=== PATIENT | female | born 1990 | race Two or more races ===

== ENCOUNTER 2025-02-27 14:28 | Emergency (ER) | payer MEDICAID, SELFPAY ==
[2025-02-27 14:29] VITALS: BMI 26.4
[2025-02-27 15:00] VITALS: BP 134/84; PULSE 84; RESP 16; TEMP 37.1; O2SAT 99
--- NOTE | 2025-02-27 15:21 | EDNOTE_ITS ---
<Statement entered by Guerline Sanchez MD - 02/27/25 17:06> As co-signing physician, I was present and available for consult prn. I concur with the plan and care as documented by the midlevel provider. ED Abdominal Pain RME/HPI General Chief Complaint: Abdominal Pain Stated complaint: pain in LUQ Time seen by provider: 02/27/25 14:40 Arrival date/time: 02/27/25 14:28 34-year-old female with no known medical history presents to the emergency room with a chief complaint of left upper quadrant abdominal pain x 1 week Source: patient Mode of arrival: ambulatory Limitations: no limitations Related Data Previous Rx's ?Medication ?Instructions ?Recorded ibuprofen 400 mg tablet 400 mg PO Q6H PRN pain #30 t abs 05/24/23 methylprednisolone 4 mg tablets in 4 mg PO QAM #21 tab s 05/24/23 a dose pack (Medrol (Robert)) sulfamethoxazole 800 1 tab PO BID #14 tabs mg-trimethoprim 160 mg tablet (Bactrim DS) Allergies Allergy/AdvReac Type Severity Reaction Status Date / Time No Known Allergies Allergy Verified 02/27/25 14:31 Review of Systems Review of Systems Systems Reviewed: All systems reviewed, normal except as documented Constitutional Constitutional: Reports system reviewed and no additional complaints, except as documented, Denies fatigue, Denies fever(s), Denies headache(s) and Denies weakness Eyes Eyes: Reports system reviewed and no additional complaints, except as documented, Denies blurry vision and Denies change in vision ENT Ears, Nose, Mouth, and Throat: Reports system reviewed and no additional complaints, except as documented, Denies otalgia, Denies headache(s), Denies nasal congestion, Denies throat swelling and Denies vertigo Cardiovascular Cardiovascular: Reports system reviewed and no additional complaints, except as documented, Denies chest pain, Denies dyspnea and Denies dyspnea on exertion Respiratory Respiratory: Reports system reviewed and no additional complaints, except as documented, Denies chest congestion, Denies cough, Denies dyspnea, Denies dyspnea on exertion and Denies wheezing Gastrointestinal Gastrointestinal: Reports system reviewed and no additional complaints, except as documented, Reports abdominal pain, Reports cramping, Reports nausea and Denies vomiting Genitourinary Genitourinary: Reports system reviewed and no additional complaints, except as documented Musculoskeletal Musculoskeletal: Reports system reviewed and no additional complaints, except as documented and Denies back pain Integumentary/Breasts Skin/Breast: Reports system reviewed and no additional complaints, except as documented and Denies wounds Neurologic Neurologic: Reports system reviewed and no additional complaints, except as documented, Denies confusion, Denies headache(s), Denies lack of coordination, Denies vertigo and Denies weakness Psychiatric Psychiatric: Reports system reviewed and no additional complaints, except as documented, Denies anxiety, Denies confusion, Denies depression, Denies paranoia, Denies suicidal ideation and Denies tactile hallucinations Endocrine Endocrine: Reports system reviewed and no additional complaints, except as documented and Denies fatigue Hematologic/Lymphatic Hematologic/Lymphatic: Reports system reviewed and no additional complaints, except as documented and Denies lymphadenopathy Allergic/Immunologic Allergic/Immunologic: Reports system reviewed and no additional complaints, except as documented, Denies throat swelling, Denies urticaria and Denies wheezing Past Medical History Social History SMOKING STATUS: Never smoker SUBSTANCE USE: does not use ED Exam General Limitations: Present no limitations General appearance: Present alert and in no apparent distress Head Head exam: Present atraumatic Eye Eye exam: Present normal appearance, PERRL and EOMI ENT ENT exam: Present normal exam, normal oropharynx and mucous membranes moist Neck Neck exam: Present normal inspection, full ROM and trachea midline Chest Chest inspection: Present normal inspection and symmetric chest wall rise Respiratory Respiratory exam: Present normal lung sounds bilaterally; Absent respiratory distress, wheezes, stridor, accessory muscle use or prolonged expiratory phase Cardiovascular Cardiovascular exam: Present regular rate, normal rhythm and normal heart sounds Abdominal Exam Abdominal exam: Present soft, tenderness and normal bowel sounds Abdominal tenderness: Present LUQ and mild Extremities Exam Extremities exam: Present normal inspection and full ROM Back Exam Back exam: Present normal inspection and full ROM Neurological Exam Neurological exam: Present alert, oriented X3 and CN II-XII intact Psychiatric Psychiatric exam: Present normal affect and normal mood Skin Skin exam: Present warm, dry, intact and normal color Course Quality Measures none Orders Category Date Time Status CBC Stat Lab 02/27/25 15:15 Completed CMP [Comprehensive Metabolic Panel] Stat Lab 02/27/25 15:15 Completed HCG Qualitative,Urine Stat Lab 02/27/25 15:38 Completed Lipase Stat Lab 02/27/25 15:15 Completed UA [Urinalysis] Stat Lab 02/27/25 15:38 Completed Urine Culture Stat Lab 02/27/25 15:12 Received Vital Signs Vital signs: Vital Signs Temperature 98.7 F 02/27/25 15:00 Pulse Rate 84 02/27/25 15:00 Respiratory Rate 16 02/27/25 15:00 Blood Pressure 134/84 H 02/27/25 15:00 Pulse Oximetry (%) 99 02/27/25 15:00 Oxygen Delivery Method Room Air 02/27/25 15:00 O2 saturation 99% within normal limits Abdominal Pain MDM MDM Narrative MDM Narrative:: 34-year-old female with no known medical history presents to the emergency room with a chief complaint of left upper quadrant abdominal pain x 1 week Patient is hemodynamically stable and in no apparent distress. Patient denies any vomiting any fevers any diarrhea Physical examination shows a soft nontender abdomen on the right side. The patient is complaining of some mild tenderness to the left upper quadrant and left lower quadrant of her abdomen CBC CMP negative for any acute findings Urinalysis showed a urinary tract infection Patient was discharged and educated to follow-up with primary care provider in the next 24 to 48 hours and return to the emergency room for any evidence of worsening signs or symptoms Patient data External records reviewed:: [facility] previous records Clinical information provided by:: patient Social determinants that could affect healthcare access:: none Patient has the following chronic illnesses:: No chronic illness How is presenting disease/condition affected by chronic disease/condition?: no chronic disease Evaluation data The following diagnostics were reviewed and interpreted by me:: lab results and radiology exam(s) Lab and/or radiology exams considered but not ordered:: Labs and radiology exams considered and ordered Interpretation Summary: N/A Medications / Prescriptions Medications or Prescriptions considered but not ordered:: Medication given Medication administrations:: Medication not given Consultations Consultation(s) initiated? (list below): No Diagnosis Differential diagnosis abdominal pain: abdominal pain, acute appendicitis, constipation, gastroenteritis and other (Urinary tract infection) Most likely diagnosis given after review of the tests above:: Urinary tract infection Admission Indicated Admission indicated?: not indicated Admission Request Was there a request for admission?: No Disposition Plan Disposition Plan: Discharge Discharge Attestation Discharge Attestation: The patient and all family members were given an opportunity to ask questions and understood the discharge instructions. Discharge instructions specifically effects, indications for sooner follow up or return to the emergency department, and the expected course of current diagnosis. Patient condition: Stable Discharge Plan Plan Patient Disposition: HOME (Self Care) Discharge Disposition comment: Stable Prescriptions/Referrals Prescriptions/Med Rec: New sulfamethoxazole-trimethoprim [Bactrim DS] 800-160 mg tablet 1 tab PO BID Qty: 14 0RF No Action methylprednisolone [Medrol (Robert)] 4 mg tablets,dose pack 4 mg PO QAM Qty: 21 0RF Rx Instructions: Use as directed ibuprofen 400 mg tablet 400 mg PO Q6H PRN (Reason: pain) Qty: 30 0RF Referrals: Juan Diego Canales MD [Primary Care Provider, Family Practice] - In 1 week Problem List Clinical Impression: Urinary tract infection Patient/Caregiver Discharge Instructions Education Materials: ED CYSTITIS Female Adult Additional Instructions: Please follow-up with your primary care provider in the next 24 to 48 hours Urinalysis showed a urinary tract infection. Antibiotics sent to your pharmacy please pick them up and take them as indicated for any evidence of worsening signs or symptoms return to the emergency room immediately Print Language: Upper Sorbian Stand Alone Forms: Tabitha Award Info., Work/School Release, Patient Portal Info Letter PA/HORTENCIA Supervising Physician PA/HORTENCIA Supervising Physician: Dr. SANCHEZ
[2025-02-27 15:29] LABS: Basophils # (Auto) 0.0 Thou/mm3 (0.0-0.2); Basophils % (Auto) 0 % (0-2.5); Eosinophils # (Auto) 0.1 Thou/mm3 (0.0-0.5); Eosinophils % (Auto) 1 % (0-10); Hematocrit 38.2 % (36.0-46.0); Hemoglobin 13.2 g/dL (12.0-16.0); Immature Granulocytes Auto 0.04 Thou/mm3 (0.00-0.00); Lymphocytes # (Auto) 2.3 Thou/mm3 (1.0-4.8); Lymphocytes % (Auto) 26 % (10-50); Mean Corpuscular HGB Conc 34.6 g/dl (31.0-37.0); Mean Corpuscular Hemoglobin 30.6 pg (25.0-35.0); Mean Corpuscular Volume 89 fL (80-100); Monocytes # (Auto) 0.4 Thou/mm3 (0.0-0.8); Monocytes % (Auto) 4 % (0-12); Neutrophils # (Auto) 6.2 Thou/mm3 (1.8-7.7); Neutrophils % (Auto) 69 % (37-80); Nucleated Red Blood Cell # 0.00 Thou/mm3 (0.00-0.00); Nucleated Red Blood Cell % 0 /100 WBC (0); Platelet Count 189 Thou/mm3 (140-440); RDW Standard Deviation 41.3 fL (36.4-46.3); Red Blood Count 4.31 Miln/mm3 (4.00-5.20); White Blood Count 9.0 Thou/mm3 (3.6-11.0)
[2025-02-27 15:48] LABS: Collection Type, Urine Clean Catch
[2025-02-27 15:50] LABS: Alanine Aminotransferase 34 U/L (10-49); Albumin, Serum 4.7 gm/dL (3.5-5.0); Albumin/Globulin Ratio 1.5 (1.2-2.2); Alkaline Phosphatase 102 U/L (46-116); Anion Gap 9 (7-16); Aspartate Amino Transferase 21 U/L (0-34); BUN/Creatinine Ratio 12 Ratio (12-20); Bilirubin,Total 0.3 mg/dL (0.3-1.2); Blood Urea Nitrogen 7 mg/dL (9-23); Calcium 9.1 mg/dL (8.3-10.6); Calcium (Corrected) 9.1 mg/dL (8.5-10.1); Carbon Dioxide 25.3 mMol/L (20.0-31.0); Chloride 105 mMol/L (98-107); Creatinine (Component) 0.6 mg/dL (0.6-1.3); Estimated Creatinine Clearance 105.6 mL/min (>60); Globulin 3.1 gm/dL (2.3-3.5); Glucose 140 mg/dL (74-106); Lipase 32 U/L (12-53); Osmolality,Calculated 277 (275-295); Potassium 3.6 mMol/L (3.4-5.1); Sodium 139 mMol/L (136-145); Total Protein 7.8 gm/dL (5.7-8.2); eGFR > 60 See Note
[2025-02-27 15:57] LABS: HCG Qualitative,Urine Negative
[2025-02-27 16:02] LABS: Bacteria,Urine 2+; Bilirubin,Urine Negative (Negative); Blood,Urine Negative (Negative); Glucose, Urine Negative (Negative); Ketones,Urine Negative (Negative); Leukocyte Esterase,Urine Positive (Negative); Nitrite,Urine Negative (Negative); PH,Urine 6.0 (5.0-7.0); Protein,Urine Negative (Neg - Trace); RBC,Urine 2 /hpf (0-3); Specific Gravity,Urine 1.008 (1.001-1.035); Squamous Epithelial Cell,Urine 3 /hpf (0-5); Urobilinogen,Urine Negative mg/dL (0.0-1.0); WBC,Urine 6 /hpf (0-5)
[2025-02-27 16:05] LABS: Clarity,Urine Hazy (Clear/Hazy); Color,Urine Lt-Yellow (Lt Yel-Yel)
== END 2025-02-27 16:37 | disposition home or self-care (01) ==
PROVIDERS: Nurse Practitioner Family; Emergency Provider Emergency Medicine; PCP Family Medicine
DX: N39.0 Urinary tract infection, site not specified (principal)
CPT/HCPCS: 36415; 80053; 81001; 81025; 83690; 85025; 87086; 99282